=== PATIENT | male | born 1955 | race Caucasian/White ===

== ENCOUNTER 2017-02-12 19:36 | Emergency (ER) | payer OTHER ==
[2017-02-12] MEDS ORDERED: TETANUS,DIPHTHERIA,PERTUSSIS 1 EA SYG IM ONE (19:47)
[2017-02-12] MEDS ORDERED: LIDOCAINE 2% 5 ML VIAL ONE ×2 (19:50→20:46)
[2017-02-12] MEDS ORDERED: CHLORHEXIDINE GLUCONATE 4 % 15 ML UD TOP ONE (19:50)
--- NOTE | 2017-02-12 19:58 | ED.PDOC ---
History of Present Illness - General Chief Complaint: Laceration Stated Complaint: left hand caught in barbed wire Time Seen by Provider: 02/12/17 19:51 Source: patient Exam Limitations: no limitations Additional Information: THE PT WAS TENDING TO HIS DOGS AND HIS HAND GOT CAUGHT AND LACERATED ON BARBED WIRE FENCE. TETANUS > 10 YRS AGO. - History of Present Illness Timing/Duration: just prior to arrival Severity: severe Location: hands Improving Factors: nothing Worsening Factors: movement Associated Symptoms: denies symptoms Allergies/Adverse Reactions: Allergies NO KNOWN ALLERGY Allergy (Verified 02/12/17 19:47) Home Medications: Ambulatory Orders Cephalexin Monohydrate [Keflex] 500 mg PO BID #14 cap 02/12/17 Review of Systems - Review of Systems Constitutional: States: no symptoms reported EENTM: States: no symptoms reported Respiratory: States: no symptoms reported Cardiology: States: no symptoms reported Gastrointestinal/Abdominal: States: no symptoms reported Genitourinary: States: no symptoms reported Musculoskeletal: States: see HPI, other - PAIN L HAND AT LAC. Skin: States: see HPI Neurological: States: no symptoms reported Endocrine: States: no symptoms reported Hematologic/Lymphatic: States: no symptoms reported All other Systems: Reviewed and Negative Family Medical History - Family History Mother Living Status: Hx Cardiac Disease: Yes Hx Family;Other: alziehmer's Physical Exam - Physical Exam General Appearance: Alert, Well Hydrated Eyes, Ears, Nose, Throat Exam: PERRL/EOMI, normal ENT inspection Neck: non-tender, full range of motion Cardiovascular/Chest: normal peripheral pulses, regular rate, rhythm Respiratory: chest non-tender, lungs clear Gastrointestinal/Abdominal: normal bowel sounds, non tender Back Exam: normal inspection Extremity: other - L HAND, ANATOMICALLY MEDIAL ASPECT, OVER HYPOTHENAR EMINENCE. TOTAL 8 CM. FULL THICKNESS. FAT AND CONNECTIVE TISSUE IS VISIBLE. TENDONS IN TACT. NEUROVASCULARLY IN TACT. GOOD CAP REFILL. Neurologic: product finisher II-XII nml as tested, no motor/sensory deficits, alert, normal mood/affect, oriented x 3 Lymphatic: no adenopathy Progress - Progress Progress: 02/12/17 21:24 LACERATION REPAIR NOTE: 8.0 CM, HYPOTHENAR EMINENCE. VERY IRREGULAR SHAPE WITH 4 ANGLES. THE LACERATION RESULTED IN A SIZEABLE 3 X 1 CM FLAP ON NARROW PEDICLE /BASE. DEBRIDED BY COPIOUSLY CLEANSING WITH NS AND HIBICLENZ. LOCAL ANES WITH 12 ML 2% PLAIN LIDOCAINE. CONNECTIVE TISSUE WAS CLOSED USING 4-0 VICRYL X 4 DEEP ABSORBABLE SUTURES. THE TIP/CORNER OF THE FLAP WAS APPROXIMATED TO THE OTHER SIDE OF HAND USING PROLENE 3-0 X 1. THE 3 SEPARATE LACERATIONS WERE CLOSED USING 3 SEPARATE UNINTERRUPTED SUTURES WITH 3-0 PROLENE. EXCELLENT HEMOSTASIS. PT GIULIANA PROCEUDRE WELL. NO COMPLICATIONS. HOME CARE AND F/U INSTRUCTIONS GIVEN. EBL < 10 ML. UPDATED TDAP. RX'D KEFLEX. . Departure - Departure Clinical Impression: Laceration of hand Disposition: Discharge to Home or Self Care Condition: Good Departure Forms: ED Discharge - Pt. Copy, Patient Portal Self Enrollment Instructions: DI for Laceration Repair -- Complex Diet: regular diet Activity: increase activity as tolerated Prescriptions: Cephalexin Monohydrate [Keflex] 500 mg PO BID #14 cap Home Medications: Ambulatory Orders Cephalexin Monohydrate [Keflex] 500 mg PO BID #14 cap 02/12/17 Additional Instructions: Please leave the dressing on for 24 hours. At that point, clean twice per day with soap and water, pat dry, apply bacitracin ointment, cover with bandaid. Please see your doctor for suture repair in 12 - 14 days. Please take the antibiotics to prevent infection. It was nice meeting you.
[2017-02-12] MEDS ORDERED: HYDROcodone 5MG/APAP 325MG 1 EA TAB ONE (19:59)
[2017-02-12] MEDS ORDERED: HYDROcodone 5MG/APAP 325MG 1 EA TAB PO ONE (20:12)
[2017-02-12] MEDS ORDERED: NEOMYCIN-BACITRACIN-POLYMYXIN 0.9 GM UD TOP ONE (21:02)
[2017-02-12 21:19] VITALS: BP 146/73; TEMP 98.2; O2SAT 94
== END 2017-02-12 21:20 | disposition home or self-care (01) ==
LOC: ER 19:36
DX: S61.412A Laceration without foreign body of left hand, initial encounter (principal); Z23 Encounter for immunization; W45.8XXA Other foreign body or object entering through skin, initial encounter; W22.09XA Striking against other stationary object, initial encounter

== ENCOUNTER 2017-02-18 14:23 | Emergency (ER) | payer OTHER ==
[2017-02-18 14:39] VITALS: BP 139/83; TEMP 98.3; O2SAT 90
--- NOTE | 2017-02-18 14:45 | ED.PDOC ---
History of Present Illness - General Chief Complaint: Skin/Abrasion/Tear Time Seen by Provider: 02/18/17 14:43 Source: patient, RN notes reviewed, Vital Signs reviewed - History of Present Illness Initial Comments: Jeffrey Armijo 61 y/o male with no chronic medical problem stated that had wooden splinter on his right index finger cutting [place] in his drive way and backyard.Had Td immunization last month. Timing/Duration: just prior to arrival Severity: mild Location: hands Improving Factors: nothing Worsening Factors: nothing Associated Symptoms: denies symptoms Allergies/Adverse Reactions: Allergies NO KNOWN ALLERGY Allergy (Verified 02/18/17 14:40) Home Medications: Ambulatory Orders Cephalexin Monohydrate [Keflex] 500 mg PO BID #14 cap 02/12/17 Ciprofloxacin [Cipro] 500 mg PO BID #14 tab 02/18/17 Tramadol HCl 50 mg PO TID PRN #14 tab 02/18/17 Review of Systems - Review of Systems Constitutional: States: no symptoms reported EENTM: States: no symptoms reported Respiratory: States: no symptoms reported Cardiology: States: no symptoms reported Gastrointestinal/Abdominal: States: no symptoms reported Genitourinary: States: no symptoms reported Musculoskeletal: States: no symptoms reported Skin: States: see HPI Neurological: States: no symptoms reported Endocrine: States: no symptoms reported Past Medical History (General) - Patient Medical History Hx Asthma: No Hx Cardiac Disorders: No Hx Diabetes: No - Vaccination History Hx Tetanus, Diphtheria Vaccination: No Hx Influenza Vaccination: Yes Hx Pneumococcal Vaccination: Yes - Social History Hx Tobacco Use: Yes Hx Alcohol Use: Yes - occ Family Medical History - Family History Mother Family History: No Known Living Status: Hx Cardiac Disease: Yes Hx Family;Other: alzheimer's Physical Exam - Physical Exam General Appearance: Alert, No apparent distress Eyes, Ears, Nose, Throat Exam: PERRL/EOMI, normal ENT inspection, TMs normal, pharynx normal Neck: non-tender, full range of motion, supple, normal inspection Cardiovascular/Chest: normal peripheral pulses, regular rate, rhythm, no edema, no gallop, no JVD, no murmur Respiratory: chest non-tender, lungs clear, normal breath sounds, no respiratory distress Gastrointestinal/Abdominal: normal bowel sounds, non tender, soft, no organomegaly, no pulsatile mass Back Exam: normal inspection, no CVA tenderness Extremity: normal range of motion, non-tender, normal inspection Neurologic: no motor/sensory deficits, alert, normal mood/affect Skin Exam: warm/dry, normal color Skin Problem Location: other - tenderness and swelling distal phalanx index finger right Skin Character: other - punctured wound Lymphatic: no adenopathy Progress - EKG/XRAY/CT XRAY: ndex finger no FB noted Departure - Departure Clinical Impression: Puncture wound of finger, right, complicated Qualifiers: Encounter type: initial encounter Qualified Code(s): S61.239A - Puncture wound without foreign body of unspecified finger without damage to nail, initial encounter Time of Disposition: 15:26 Disposition: Discharge to Home or Self Care Condition: Good Departure Forms: ED Discharge - Pt. Copy, Patient Portal Self Enrollment Instructions: DI for Puncture Wound Prescriptions: Ciprofloxacin [Cipro] 500 mg PO BID #14 tab Tramadol HCl 50 mg PO TID PRN #14 tab PRN Reason: Pain Home Medications: Ambulatory Orders Cephalexin Monohydrate [Keflex] 500 mg PO BID #14 cap 02/12/17 Ciprofloxacin [Cipro] 500 mg PO BID #14 tab 02/18/17 Tramadol HCl 50 mg PO TID PRN #14 tab 02/18/17 Additional Instructions: RETURN TO ER NEEDED
--- NOTE | 2017-02-18 15:14 | RAD ---
EXAM DESCRIPTION: Fingers,Right CLINICAL HISTORY: 61 years, Male, fb foreign body COMPARISON: None. FINDINGS: Right hand second digit demonstrates no bony abnormalities. Joint spaces unremarkable for age. Soft tissues appear unremarkable no radiopaque or lucent foreign bodies. IMPRESSION: Unremarkable right hand second digit Electronically signed by: Cyrus Biggs MD 02/18/2017 3:13 PM CDT
== END 2017-02-18 15:36 | disposition home or self-care (01) ==
LOC: ER 14:23
DX: S61.239A Puncture wound without foreign body of unspecified finger without damage to nail, initial encounter (principal); Z87.891 Personal history of nicotine dependence; X58.XXXA Exposure to other specified factors, initial encounter; Y92.007 Garden or yard of unspecified non-institutional (private) residence as the place of occurrence of the external cause